=== PATIENT | male | born 1965 | race Caucasian/White ===

== ENCOUNTER 2018-03-17 14:56 | Emergency (ER) | payer MEDICARE, MEDICAID, SELFPAY ==
[2018-03-17 14:57] VITALS: BP 160/98; PULSE 77; RESP 16; TEMP 36.3; O2SAT 99; BMI 48.8
--- NOTE | 2018-03-17 15:20 | RAD_ITS ---
STUDY: X-RAY - RIGHT FOOT CLINICAL: Male, 52 years old. Pain for 4 to 5 days. No known injury. TECHNIQUE: The view(s) of the foot. COMPARISON: None. FINDINGS: There is spurring in the interphalangeal joint of the first digit noted with joint space narrowing. No definite evidence for an acute fracture. Plantar and calcaneal spurring. Degenerative changes in the metatarsal tarsal joints also seen. IMPRESSION: No evidence for acute fractures. Electronically Signed: Eric Walker, at 15:37 EDT Tel , Service support , RAD/Foot min 3 Views
--- NOTE | 2018-03-17 15:21 | ED.VISSUMM ---
- ER Visit Summary Date of Service: 03/17/18 Chief Complaint: Right foot pain History of Present Illness: The patient is a 52 M with right foot pain for the past 4 or 5 days. It started gradually to working on his truck, he denies any injury. Foot pain is diffusely, not any specific joint. There is no erythema. There is mild swelling. Physical Examination: Vital signs significant for blood pressure 160/98, otherwise unremarkable. Head neck examination normal. Heart is regular rate and rhythm. Lung sounds clear. Right lower extremity examination was mild tenderness diffusely throughout the right foot. There is mild edema noted. There is no erythema. She has strong distal pulses. Normal range of motion. No calf tenderness or edema. Test Results: Right foot x-rays are unremarkable. No evidence of stress fracture. Emergency Department Course and Treatment: Patient did take ibuprofen just prior to arrival. He will be treated with a course of prednisone. My suspicion is he likely has tendinitis. Bandar wrap will be applied as well. Treatment Plan: [] Disposition: Discharge Impression: Tendinitis right foot This note was generated with [employer] dictation software. It may contain incorrect words, spelling, and punctuation that were not noted in review of the chart prior to signing ED Disposition - Plan for ED Patient: Chief Complaint: Lower Extremity Injury Referrals: Jeremy Calix MD [Primary Care Provider] -
--- NOTE | 2018-03-17 15:57 | ED.DEP ---
ED Disposition - Plan for ED Patient: Disposition: Home or Assisted Living Chief Complaint: Lower Extremity Injury Instructions: What Is Tendinitis of the Foot?, Treating Tendonitis of the Foot Prescriptions: Prednisone 10 mg PO UD #33 tablet Referrals: Roscoe Trujillo DO [NON CLINICAL AFFILIATE] - 1 Week if not improving
[2018-03-17] MEDS: predniSONE 20 MG Tablet 60 MG PO (16:04)
[2018-03-17 16:05] VITALS: BP 158/80; PULSE 85; RESP 14; O2SAT 99
== END 2018-03-17 16:10 | disposition home or self-care (01) ==
PROVIDERS: Emergency Provider Emergency Medicine; Family Provider Family Medicine; PCP Family Medicine
DX: M77.51 Other enthesopathy of right foot and ankle (principal); I10 Essential (primary) hypertension; E03.9 Hypothyroidism, unspecified; J45.909 Unspecified asthma, uncomplicated; Z79.899 Other long term (current) drug therapy
CPT/HCPCS: 73630; 99283

== ENCOUNTER 2019-03-10 21:13 | Emergency (ER) | payer MEDICARE, MEDICAID, SELFPAY ==
[2019-03-10 21:15] VITALS: BP 160/102; PULSE 96; RESP 16; TEMP 36.8; O2SAT 97; BMI 47.5
[2019-03-10 22:23] VITALS: BP 168/99; PULSE 78; PULSE 81; RESP 20; TEMP 36.8; O2SAT 98; O2SAT 99
--- NOTE | 2019-03-10 22:40 | ED.DCSUM_ITS ---
- ER Visit Summary Date of Service: 03/10/19 Chief Complaint: Dental pain, sore throat History of Present Illness: The patient is a 53 M presenting with dental pain, sore throat. Patient states this started today. He has pain to the left side of his mouth. He also complains of sore throat. He denies difficulty swallowing. He had subjective fever at home. He states he has chronic problems with his tonsils. He has been told in the past that he needs them removed. He does not currently have a dentist. Denies other complaints. Physical Examination: Vitals are stable. Patient is afebrile. Alert no acute distress. HEENT exam symmetric tonsils, pharyngeal erythema, no exudate. Uvula is midline. Widespread dental decay. No areas of intraoral fluctuance. No sublingual edema. Neck is supple. Lungs are clear and equal bilaterally. Heart is regular rate and rhythm. Extremities are unremarkable. Skin is warm and dry. No focal neurologic deficit. Remainder of exam is unremarkable. Emergency Department Course and Treatment: Patient was given Decadron, and [place]. Rapid strep is negative. Patient is given prescription for Pen-Vee K and Naprosyn. He is advised to follow-up with dentist and primary care physician. Advised to return to ED for worsening complaints. Disposition: Discharge home Impression: Odontalgia, pharyngitis This note was generated with [employer] dictation software. It may contain incorrect words, spelling, and punctuation that were not noted in review of the chart prior to signing ED Disposition - Plan for ED Patient: Instructions: Dental Pain, PHARYNGITIS, Viral Prescriptions: Naproxen [Naprosyn] 500 mg PO BID PRN #20 tab Prescription Printed Penicillin V Potassium 500 mg PO 4X/DAY #40 tab Prescription Printed Referrals: Erasmo Reno MD [NON-STAFF] -
[2019-03-10] MEDS: dexAMETHasone 4 MG Tablet PO (22:48)
[2019-03-10] MEDS: HYDROcodone Bitartrate/Apap 5/325 Tablet PO (22:48)
[2019-03-10 23:00] VITALS: BP 192/105; PULSE 81; RESP 20; TEMP 36.8; O2SAT 96
--- NOTE | 2019-03-10 23:30 | ED.DEP ---
ED Disposition - Plan for ED Patient: Instructions: Dental Pain, PHARYNGITIS, Viral Prescriptions: Naproxen [Naprosyn] 500 mg PO BID PRN #20 tablet Penicillin V Potassium 500 mg PO 4X/DAY #40 tablet Referrals: Erasmo Reno MD [NON-STAFF] -
[2019-03-10 23:41] VITALS: BP 176/92; PULSE 73; RESP 16
== END 2019-03-10 23:42 | disposition home or self-care (01) ==
PROVIDERS: Emergency Provider Emergency Medicine; Family Provider Family Medicine; PCP Family Medicine
DX: K02.9 Dental caries, unspecified (principal); J02.9 Acute pharyngitis, unspecified; J44.9 Chronic obstructive pulmonary disease, unspecified; Z79.899 Other long term (current) drug therapy
CPT/HCPCS: 87880; 99283